=== PATIENT | male | born 1955 | race Caucasian/White ===

== ENCOUNTER 2017-05-17 10:03 | Inpatient (IN) | payer MEDICARE ==
[~2017-05-17] VITALS: Ht 177.8 cm; Wt 94.2 kg
[~2017-05-17 10:03] MED LIST: BACT800T5 PO; KEFL500C17 PO; TYLE325T5 PO; ZOLO50TA PO
[2017-05-17] MEDS ORDERED: MORPHINE 4 MG/ML 1ML SYRINGE IV ONE ×2 (10:30→11:15)
[2017-05-17] MEDS ORDERED: VITA200016 PO (11:01)
[2017-05-17] MEDS ORDERED: ATOR40TA75 PO (11:01)
[2017-05-17] MEDS ORDERED: ASPI325T24 PO (11:01)
[2017-05-17] MEDS ORDERED: fentaNYL 100 MCG/2 ML INJECTION (J3010) IV ONE ×4 (13:00→17:45)
--- NOTE | 2017-05-17 13:00 | REP ---
BILATERAL FOREARM, FOUR VIEWS: HISTORY: Fall. LEFT FOREARM: There is a comminuted intra-articular fracture of the distal radius. There is a fracture of the ulnar styloid process. There is posterior dislocation of the carpal bones with respect to the distal radius. IMPRESSION: Fracture-dislocation, as described above. ___Right FOREARM, TWO VIEWS: The patient is status post ORIF of fractures of the distal radius and ulna. Metal plates and screws are present. There is narrowing s of the radiocarpal, carpal and carpometacarpal joint spaces. There is no acute fracture or dislocation. There is narrowing of the carpal and carpometacarpal joint spaces. IMPRESSION: The patient is status post ORIF of fractures of the distal radius and ulna. Signed by Marko Lewis MD 05/17/2017 01:14 P
--- NOTE | 2017-05-17 13:04 | REP ---
UNILATERAL LEFT RIBS/PA CHEST, FIVE VIEWS: HISTORY: Fall. The patient is status post repair of fractures of the left 4th through 8th ribs. There are fractures of the left 3rd and 8th ribs. Linear density is present in the left lower lobe consistent with atelectasis or scar. The right lung is clear. The heart is normal in size. The pulmonary vasculature is normal in appearance. IMPRESSION: There are fractures of the left 3rd and 8th ribs. Signed by Marko Lewis MD 05/17/2017 01:14 P
[2017-05-17] MEDS ORDERED: VITA-121 PO (13:20)
[2017-05-17] MEDS ORDERED: REFR0.5D8 OU (13:21)
--- NOTE | 2017-05-17 13:35 | REP ---
BILATERAL WRIST, EIGHT VIEWS: LEFT WRIST: There is a comminuted intra-articular fracture of the distal radius. There is posterior dislocation of the carpal bones with respect to the distal radius. There is a fracture of the ulnar styloid process. There is narrowing of the 1st carpometacarpal joint space. IMPRESSION: Fracture dislocation as described above. RIGHT WRIST: The patient is status post ORIF of fractures of the radius and ulna. Metal plates and screws are present. There is no acute fracture or dislocation. There is an old ununited fracture of the ulnar styloid process. There is narrowing of the radiocarpal, carpal and carpometacarpal joint spaces. IMPRESSION: The patient is status post ORIF of fractures of the distal radius and ulna. Signed by Marko Lewis MD 05/17/2017 01:44 P
[2017-05-17 16:10] LABS: BASO % 0.2 % (0.0-1.0); EOS % 0.5 % (0.0-3.0); LARGE UNSTAINED CELL # 0.1 K/mm3 (0.0-0.4); LARGE UNSTAINED CELL % 0.9 % (0.0-4.0); LYMPH % 9.2 % (24.0-44.0); MEAN CORPUSCULAR HEMOGLOBIN 30.8 pg (27.0-33.0); MEAN CORPUSCULAR HGB CONC 34.2 g/dl (32.0-36.5); MEAN CORPUSCULAR VOLUME 89.9 fl (80.0-96.0); MONO # 0.5 K/mm3 (0.0-0.8); MONO % 5.3 % (0.0-5.0); NEUTROPHILS # 8.2 K/mm3 (1.8-7.7); NEUTROPHILS % 83.9 % (36.0-66.0); PLATELET COUNT, AUTOMATED 165 k/mm3 (150-450); RED CELL DISTRIBUTION WIDTH 12.7 % (11.5-14.5); WHITE BLOOD COUNT 9.7 K/mm3 (4.0-10.0)
[2017-05-17 16:15] LABS: INR 1.09
[2017-05-17 16:46] LABS: ANION GAP 9 MEQ/L (8-16); BLOOD UREA NITROGEN 11 MG/DL (7-18); CALCIUM LEVEL 8.3 MG/DL (8.8-10.2); CARBON DIOXIDE LEVEL 26 MEQ/L (21-32); CHLORIDE LEVEL 105 MEQ/L (98-107); CREATININE FOR GFR 0.64 MG/DL (0.70-1.30); GLOMERULAR FILTRATION RATE > 60.0 (>49); GLUCOSE, FASTING 97 MG/DL (80-110); POTASSIUM SERUM 3.7 MEQ/L (3.5-5.1); SODIUM LEVEL 140 MEQ/L (136-145)
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
[2017-05-17] MEDS ORDERED: ACETAMINOPHEN TAB 650MG DOSE (2X325MG) PO PRN (20:15)
[2017-05-17] MEDS ORDERED: MORPHINE 4 MG/ML 1ML SYRINGE IV PRN (20:15)
[2017-05-17] MEDS: D5W/0.45% SODIUM CHLORIDE 1,000 ML IV SCH (20:38)
[2017-05-17] MEDS: PERCOCET 5MG/325MG TAB PO PRN (20:58)
[2017-05-17 21:40] VITALS: BP 119/66
[2017-05-17 22:00] VITALS: BP 119/66
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
[2017-05-17] MEDS: MORPHINE 4 MG/ML 1ML SYRINGE IV PRN (22:44)
[2017-05-18] VITALS (15 sets, daily range): BP systolic 107–146; BP diastolic 57–82
[2017-05-18] MEDS: PERCOCET 5MG/325MG TAB PO PRN ×3 (01:05→21:43)
[2017-05-18] MEDS: D5W/0.45% SODIUM CHLORIDE 1,000 ML IV SCH ×3 (05:44→23:30)
[2017-05-18] MEDS ORDERED: ceFAZolin 1GM INJ (J0690) As Ordered ONE (07:18)
[2017-05-18] MEDS ORDERED: BUPIVACAINE/EPIN 0.25% 30 ML VIAL As Ordered ONE (07:18)
[2017-05-18] MEDS: MORPHINE 4 MG/ML 1ML SYRINGE IV PRN (07:32)
[2017-05-18] MEDS ORDERED: fentaNYL 100 MCG/2 ML INJECTION (J3010) As Ordered ONE (07:53)
[2017-05-18] MEDS ORDERED: LIDOCAINE 2% INJ 100 MG/5 ML SDV (FOR ANES.) As Ordered ONE (07:53)
[2017-05-18] MEDS ORDERED: PROPOFOL 200 MG/20 ML VIAL As Ordered ONE (07:53)
[2017-05-18] MEDS ORDERED: MIDAZOLAM INJ 2 MG/2 ML VIAL (J2250) As Ordered ONE (07:54)
[2017-05-18] MEDS ORDERED: ceFAZolin 2 GM/D5W 50 ML IV BAG (J0690) As Ordered ONE (08:19)
[2017-05-18] MEDS ORDERED: PHENYLephrine HCL 500 MCG/5 ML (100MCG/ML) SYRINGE (J2370) As Ordered ONE (08:44)
[2017-05-18] MEDS ORDERED: ONDANSETRON 4MG/2ML VIAL (J2405) As Ordered ONE (08:44)
[2017-05-18] MEDS ORDERED: ePHEDrine SULFATE 25 MG/5 ML(5MG/ML) SYRINGE As Ordered ONE (08:44)
--- NOTE | 2017-05-18 09:52 | ECGEPIP ---
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
--- NOTE | 2017-05-18 11:05 | REP ---
LEFT FOREARM: 05/18/2017. Clinical history: Comminuted distal radial fracture. Findings: The comminuted intra-articular distal radial fracture is reduced with near anatomic alignment and external fixators in the shaft of the radius and in the second metacarpal. Fluoroscopy time: 43 seconds. Signed by Gonsalo Carrasco MD 05/18/2017 07:55 P
[2017-05-18] MEDS ORDERED: ONDANSETRON 4MG/2ML VIAL (J2405) IV PRN (11:15)
[2017-05-18] MEDS ORDERED: MORPHINE 2 MG/ML 1ML SYRINGE IV PRN (11:15)
[2017-05-18] MEDS ORDERED: LR 1,000 ML IV SCH (11:15)
[2017-05-18] MEDS ORDERED: fentaNYL 100 MCG/2 ML INJECTION (J3010) IV PRN (11:15)
[2017-05-18] MEDS: ATORVASTATIN 20 MG TAB PO SCH (12:59)
[2017-05-18] MEDS: VITAMIN D 1,000 INTERNATIONAL UNITS TABLET PO SCH (12:59)
[2017-05-18] MEDS: DOCUSATE SODIUM 100 MG CAP PO SCH ×2 (12:59→20:25)
[2017-05-18] MEDS: MORPHINE 2 MG/ML 1ML SYRINGE IV PRN ×3 (13:00→20:24)
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
[2017-05-18] MEDS ORDERED: POLYVINYL ALCOHOL OPHTH SOLN 15 ML(LIQUITEARS) OU PRN (13:45)
[2017-05-18] MEDS: ONDANSETRON 4MG/2ML VIAL (J2405) IV PRN (17:17)
[2017-05-19] VITALS (12 sets, daily range): BP systolic 100–138; BP diastolic 55–78
[2017-05-19] MEDS: PERCOCET 5MG/325MG TAB PO PRN (05:34)
[2017-05-19 07:10] LABS: ANION GAP 9 MEQ/L (8-16); BLOOD UREA NITROGEN 6 MG/DL (7-18); CALCIUM LEVEL 7.5 MG/DL (8.8-10.2); CARBON DIOXIDE LEVEL 27 MEQ/L (21-32); CHLORIDE LEVEL 105 MEQ/L (98-107); CREATININE FOR GFR 0.66 MG/DL (0.70-1.30); GLOMERULAR FILTRATION RATE > 60.0 (>49); GLUCOSE, FASTING 130 MG/DL (80-110); POTASSIUM SERUM 3.9 MEQ/L (3.5-5.1); SODIUM LEVEL 141 MEQ/L (136-145)
[2017-05-19 07:49] LABS: WHITE BLOOD COUNT 7.5 K/mm3 (4.0-10.0)
[2017-05-19 07:50] LABS: BASO % 0.5 % (0.0-1.0); EOS % 2.6 % (0.0-3.0); LARGE UNSTAINED CELL % 1.3 % (0.0-4.0); LYMPH # 0.9 K/mm3 (1.5-4.5); LYMPH % 12.4 % (24.0-44.0); MEAN CORPUSCULAR HEMOGLOBIN 30.4 pg (27.0-33.0); MEAN CORPUSCULAR HGB CONC 33.7 g/dl (32.0-36.5); MEAN CORPUSCULAR VOLUME 90.4 fl (80.0-96.0); MONO # 0.5 K/mm3 (0.0-0.8); MONO % 6.6 % (0.0-5.0); NEUTROPHILS # 5.8 K/mm3 (1.8-7.7); NEUTROPHILS % 76.7 % (36.0-66.0); PLATELET COUNT, AUTOMATED 176 k/mm3 (150-450); RED CELL DISTRIBUTION WIDTH 12.6 % (11.5-14.5)
[2017-05-19 07:51] LABS: EOS # 0.2 K/mm3 (0.0-0.50); LARGE UNSTAINED CELL # 0.1 K/mm3 (0.0-0.4)
[2017-05-19] MEDS: DOCUSATE SODIUM 100 MG CAP PO SCH ×2 (08:57→21:39)
[2017-05-19] MEDS: VITAMIN D 1,000 INTERNATIONAL UNITS TABLET PO SCH (08:57)
[2017-05-19] MEDS: MOM 30ML SUSPENSION UDC PO SCH (08:57)
[2017-05-19] MEDS: ATORVASTATIN 20 MG TAB PO SCH (08:57)
[2017-05-19] MEDS: ONDANSETRON 4MG/2ML VIAL (J2405) IV PRN (08:58)
[2017-05-19] MEDS: MIRALAX *UNIT DOSE* 17GM PACKET PO SCH (08:58)
[2017-05-19] MEDS: MORPHINE 2 MG/ML 1ML SYRINGE IV PRN ×2 (08:59→11:43)
[2017-05-19] MEDS: PANTOPRAZOLE 40MG TAB (PROTONIX) PO SCH (09:00)
--- NOTE | 2017-05-19 09:00 | REP ---
LEFT LOWER EXTREMITY DOPPLER VENOUS ULTRASOUND: 05/18/2017. Clinical history: Left lower extremity swelling. Comparison: Ultrasound 12/06/2014. Findings: Standard duplex techniques were utilized throughout the left lower extremity. Deep venous system shows color flow throughout its course. Respiratory variation and augmentation at all levels. The common femoral and superficial femoral vein of the thigh both are fully compressible throughout their course. The popliteal vein is not completely compressible with a zone of nonocclusive thrombus on one wall. There is a duplication in the mid femoral vein as an anatomic variation. Impression: 1. Nonoccluding thrombus in the left popliteal vein with good color flow throughout the deep venous system and with full compressibility in the remainder of the deep venous system from just above this thrombus through the groin. Whether this represents chronic DVT or acute on chronic DVT is not certain based on these images. Correlate clinically. Signed by Gonsalo Carrasco MD 05/19/2017 05:49 P
[2017-05-19] MEDS ORDERED: LEVALBUTEROL 1.25 MG/0.5 ML CONCENTRATE NEB NEB PRN (10:30)
[2017-05-19] MEDS ORDERED: BISACODYL 10 MG SUPP PR PRN (10:30)
[2017-05-19] MEDS ORDERED: NORCO, ANEXSIA 5/325MG TABLET (HYDROcodone/ACETAMINOPHEN) PO PRN (10:30)
--- NOTE | 2017-05-19 10:56 | REP ---
AP LATERAL CHEST (SEMI-ERECT): 05/19/2017. Comparison: Chest with rib series 05/17/2017. Clinical history: Rib fractures left 3rd and 8th. Prior multiple rib fracture repair with plate and screw fixation. Findings: AP and lateral semi-erect chest shows left pleural effusion and a worsening retrocardiac atelectasis or infiltrate in the left lower lobe. Right lung base was grossly clear. Mid and upper lung zones without acute finding. Some venous hypertension without tyrone edema noted. The cardiomediastinal silhouette and airway normal. Aorta mildly tortuous. Multiple lateral and posterolateral plate and screw fixations from left 4th-8th ribs unchanged. Impression: 1. Worsening left lower lobe effusion and retrocardiac left lower lobe atelectasis or infiltrate with silhouetting of the diaphragm now present. 2. No pneumothorax. Multiple old rib fractures with plate and screw fixation of the left 4th-8th ribs. The new rib fractures on the rib series 2 days ago are not well seen on chest x-ray. 3. No cardiomegaly but some venous hypertension. No edema. Signed by Gonsalo Carrasco MD 05/19/2017 05:59 P
[2017-05-19 11:15] LABS: ABG BASE EXCESS 5.2 (-2.0-2.0); ABG HCO3 30.7 MEQ/L (22.0-26.0); ABG PARTIAL PRESSURE CO2 48.7 mmHg (35.0-45.0); ABG PARTIAL PRESSURE O2 62.9 mmHg (75.0-100.0); ABG TOTAL CO2 32.2 MEQ/L (23.0-31.0); ABG pH (ARTERIAL) 7.417 UNITS (7.350-7.450)
[2017-05-19 11:35] LABS: ALBUMIN 2.8 GM/DL (3.2-5.2); ALBUMIN/GLOBULIN RATIO 1.08 (1.00-1.93); ALKALINE PHOSPHATASE 32 U/L (45-117); ALT/SGPT 20 U/L (12-78); AST/SGOT 20 U/L (15-37); BILIRUBIN,TOTAL 0.6 MG/DL (0.2-1.0); CHOLESTEROL LEVEL 160 MG/DL (< 200); PHOSPHORUS LEVEL 2.8 MG/DL (2.5-4.9); TOTAL PROTEIN 5.4 GM/DL (6.4-8.2); TRIGLYCERIDES LEVEL 76 MG/DL (<150)
[2017-05-19] MEDS: KETOROLAC 30 MG/ML VIAL (J1885) IV SCH ×3 (11:41→22:44)
[2017-05-19] MEDS: D5W/0.45% SODIUM CHLORIDE 1,000 ML IV SCH (12:00)
[2017-05-19] MEDS ORDERED: FENTANYL 2MCG/ML BUPIVACAINE 0.0625% NACL 250ML IV BAG As Ordered ONE (12:02)
[2017-05-19] MEDS ORDERED: fentaNYL 100 MCG/2 ML INJECTION (J3010) As Ordered ONE (12:02)
[2017-05-19] MEDS ORDERED: MIDAZOLAM INJ 2 MG/2 ML VIAL (J2250) As Ordered ONE (12:02)
[2017-05-19] MEDS: MIDAZOLAM INJ 2 MG/2 ML VIAL (J2250) IV PRN ×2 (12:20→12:23)
[2017-05-19] MEDS: FENTANYL/BUPIVACAINE/NACL BAG 250 ML EPIDURAL SCH (12:59)
[2017-05-19] MEDS ORDERED: METOCLOPRAMIDE INJ 10MG/2ML VIAL (J2765) IV PRN (13:15)
[2017-05-19] MEDS ORDERED: diphenhydrAMINE INJ 50MG/ML VIAL (J1200) IV PRN (13:15)
[2017-05-19] MEDS ORDERED: NALOXONE INJ 0.4 MG/1 ML VIAL (J2310) IV PRN (13:15)
[2017-05-19] MEDS ORDERED: ONDANSETRON 4MG/2ML VIAL (J2405) IV PRN (13:15)
[2017-05-19] MEDS ORDERED: fentaNYL 100 MCG/2 ML INJECTION (J3010) IV PRN (13:15)
[2017-05-19] MEDS ORDERED: WALLBOXKEY XX PRN (13:15)
[2017-05-19] MEDS ORDERED: EPIDURAL/PCA KEYS XX PRN (13:15)
[2017-05-19] MEDS: LEVALBUTEROL 1.25 MG/0.5 ML CONCENTRATE NEB NEB SCH ×2 (14:15→20:00)
[2017-05-19] MEDS: LevoFLOXacin 750 MG TABLET PO SCH (16:00)
[2017-05-19] MEDS ORDERED: HEPARIN DRIP 25,000 UNITS in APPROPRIATE DILUENT 1 EA IV SCH (17:01)
[2017-05-19] MEDS ORDERED: HEPARIN SOD (PORCINE) 5000 UNITS/ML VIAL IV PRN (17:15)
[2017-05-19] MEDS ORDERED: HEPARIN SOD (PORCINE) 5000 UNITS/ML VIAL IV ONE (17:15)
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
[2017-05-19] MEDS: ENOXAPARIN 40 MG/0.4 ML SYRINGE (J1650) SC SCH (18:30)
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
[2017-05-20] MEDS: LEVALBUTEROL 1.25 MG/0.5 ML CONCENTRATE NEB NEB SCH ×4 (01:29→21:33)
[2017-05-20 02:00] VITALS: BP 106/51
[2017-05-20] MEDS: LevoFLOXacin 750 MG TABLET PO SCH (05:13)
[2017-05-20] MEDS: KETOROLAC 30 MG/ML VIAL (J1885) IV SCH ×4 (05:13→22:57)
[2017-05-20 06:00] VITALS: BP 112/50
[2017-05-20 06:56] LABS: BASO % 0.7 % (0.0-1.0); EOS # 0.2 K/mm3 (0.0-0.50); EOS % 3.4 % (0.0-3.0); LARGE UNSTAINED CELL # 0.1 K/mm3 (0.0-0.4); LARGE UNSTAINED CELL % 1.7 % (0.0-4.0); LYMPH % 17.3 % (24.0-44.0); MEAN CORPUSCULAR HEMOGLOBIN 29.9 pg (27.0-33.0); MEAN CORPUSCULAR HGB CONC 33.4 g/dl (32.0-36.5); MEAN CORPUSCULAR VOLUME 89.7 fl (80.0-96.0); MONO # 0.4 K/mm3 (0.0-0.8); MONO % 7.2 % (0.0-5.0); NEUTROPHILS # 3.5 K/mm3 (1.8-7.7); NEUTROPHILS % 69.7 % (36.0-66.0); PLATELET COUNT, AUTOMATED 185 k/mm3 (150-450); RED CELL DISTRIBUTION WIDTH 12.6 % (11.5-14.5)
[2017-05-20 07:07] LABS: ANION GAP 3 MEQ/L (8-16); BLOOD UREA NITROGEN 10 MG/DL (7-18); CARBON DIOXIDE LEVEL 34 MEQ/L (21-32); CHLORIDE LEVEL 103 MEQ/L (98-107); CREATININE FOR GFR 0.75 MG/DL (0.70-1.30); GLOMERULAR FILTRATION RATE > 60.0 (>49); GLUCOSE, FASTING 92 MG/DL (80-110); MAGNESIUM LEVEL 2.4 MG/DL (1.8-2.4); POTASSIUM SERUM 4.1 MEQ/L (3.5-5.1); SODIUM LEVEL 140 MEQ/L (136-145)
--- NOTE | 2017-05-20 07:10 | IPN ---
DATE: 05/19/2017 I received a call today from Dr. Turner and after reviewing his vascular ultrasound, radiology has found a thrombus in the left popliteal vein. It is uncertain that this represents a chronic or an acute deep vein thrombosis (DVT) or an acute on top of chronic DVT. Dr. Turner reviewed an ultrasound that he had 2 years ago on 12/06/2014 and there was no evidence of a deep thrombosis at that point in time. I therefore suspect that the thrombosis is more acute than chronic that he has presently. This morning, he underwent an epidural catheter placement and upon visiting the patient this evening, he has had almost complete pain control. He can take a deep breath and cough. The question now remains as to what to do with the finding of the DVT. In speaking with Dr. Ulloa, he is reluctant to have us start full anticoagulation, although if it were an emergent condition we would have to weigh the risks and benefits and start the anticoagulation, particularly if this was a full blown pulmonary embolism. We have therefore decided on the strategy of giving him lower dose Lovenox at this point in time and placing an IVC filter. We no longer have interventional radiology and it is my understanding that the vascular surgeon, Dr. Tesfaye, is able to place [place] filters and Dr. Turner is going to contact Dr. Tesfaye. If we cannot get the IVC filter placed, we are going to be forced to transfer him to another facility. Removing the epidural catheter is a very poor option as he needs for pain control to achieve lung expansion and mobilization of secretions. [facility] MEDICAL CENTERJose Alberto
--- NOTE | 2017-05-20 07:34 | RO ---
DATE OF PROCEDURE: 05/18/2017 PREOPERATIVE DIAGNOSIS: Left distal radius comminuted intra-articular fracture. POSTOPERATIVE DIAGNOSIS: Left distal radius comminuted intra-articular fracture. PROCEDURE: Closed reduction and application of external fixator with distal radius. SURGEON: Dimitry Casas MD WEATHER REPORTER: ANESTHESIA: Laryngeal mask airway (LMA) with general. COMPLICATIONS: None. ESTIMATED BLOOD LOSS: Less than 30 mL, replaced with crystalloid. COMPONENTS USED: Include the Brittni external fixator set. INDICATIONS: Fall down stairs fracture left upper extremity displaced and comminuted. Consent reviewed in detail including a tyrone discussion of procedure proposed, alternatives including doing nothing, risks including but not limited to pain, failure, infection, bleeding blood loss, need for more surgery and other issues. Of note, that the patient was consented for a volar plate and the operative intervention was changed intraoperatively due to intraoperative findings. DESCRIPTION OF PROCEDURE/OPERATIVE COURSE: Identified in the holding area, site and side verified, brought to the operating room. Once anesthesia was administered, he was positioned for exposure of the left upper extremity, sterilely prepped and draped. Tourniquet was high on the left upper extremity but not inflated. Next, a closed reduction was implemented by myself in the operating room and I directed fluoroscopy. The reduction appeared to be nearly anatomic however, upon reduction I appreciated significant comminution of the distal radius that extended longitudinally along the radial border of the distal radius, that, in my opinion, might compromise lag screws traversing the longitudinal fracture line, and therefore compromise stability of the volar plate. Because of this, the decision was made to implement an external fixator. Next, the line of the incisions were outlined with a marking pen. The proximal incision was made proximal to the longitudinal fracture at the radial diaphysis. The metacarpal incision was over the second metacarpal towards the radial side. The proximal incision made first with a 10 blade, developed down through skin and subcuticular tissues. I identified the superficial branch of the radial nerve and this was protected and it was retracted dorsally. Next, the drill guide was applied and I predrilled the fixator pin site and placed the fixator pin. A second pin was placed similarly using a drill guide, protecting the nerve and soft tissues. Next, irrigation was accomplished and attention turned to the metacarpal. An incision was made over the metacarpal in a similar fashion. Pins were drilled and placed using the soft tissue protector. Next, fluoroscopic images were obtained of pin placement in AP and lateral plane. Next, the wounds were irrigated and closed with interrupted #4-0 nylon stitch. Next, I assembled the external fixator. I placed the arm in reduction. I held the reduction while the surgical assistant tightened the bolts on the fixator. I then verified that all bolts on the fixator were secure. I obtained final fluoroscopic images, which revealed a nearly anatomic reduction of this comminuted intra-articular fracture. Next, dressings were applied. The patient was extubated and moved to the recovery room in good condition. For further details, please refer to medical record. I had a discussion with the patient's spouse postoperatively about the decision to implement the external fixator. In fact, prior to installation of the fixator we did attempt to contact the patient's spouse via cell phone; however, she was not available at that time. For further details please refer to medical record.
[2017-05-20 08:31] LABS: ABG BASE EXCESS 2.9 (-2.0-2.0); ABG HCO3 27.6 MEQ/L (22.0-26.0); ABG PARTIAL PRESSURE CO2 43.2 mmHg (35.0-45.0); ABG PARTIAL PRESSURE O2 94.6 mmHg (75.0-100.0); ABG pH (ARTERIAL) 7.424 UNITS (7.350-7.450)
[2017-05-20] MEDS: ENOXAPARIN 40 MG/0.4 ML SYRINGE (J1650) SC SCH (09:00)
[2017-05-20] MEDS: MIRALAX *UNIT DOSE* 17GM PACKET PO SCH (09:00)
[2017-05-20] MEDS: MOM 30ML SUSPENSION UDC PO SCH (09:00)
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
[2017-05-20 10:00] VITALS: BP 114/60
--- NOTE | 2017-05-20 11:01 | REP ---
Chest upright AP and lateral views: Comparisons are 03/21/2017 and 03/17/2070. There are multiple left rib stabilization plates. There is focal increased density inferiorly in the left lung and effacement of the left costophrenic angle compatible with atelectasis/effusion/combination. Left upper lobe is clear. Right lung is clear. There is an epidural catheter as an interval change. Signed by Jim Dennison MD 05/20/2017 10:53 A
[2017-05-20] MEDS: VITAMIN D 1,000 INTERNATIONAL UNITS TABLET PO SCH (11:21)
[2017-05-20] MEDS: DOCUSATE SODIUM 100 MG CAP PO SCH ×2 (11:22→20:16)
[2017-05-20] MEDS: PANTOPRAZOLE 40MG TAB (PROTONIX) PO SCH (11:22)
[2017-05-20] MEDS: ATORVASTATIN 20 MG TAB PO SCH (11:22)
[2017-05-20] MEDS: NS 1,000 ML IV SCH (11:23)
[2017-05-20 13:25] LABS: MICROSCOPIC INDICATED? MAN YES (NO)
[2017-05-20 13:26] LABS: MICROSCOPIC EXAM PERFORMED
[2017-05-20 13:27] LABS: BACTERIA, URINE LARGE AMOUNT; HYALINE CAST, URINE NONE SEEN /lpf (0-1); RBC, URINE TNTC /hpf (0-3); SQUAMOUS EPITHELIAL CELL URINE NONE SEEN /hpf (SMALL AMT)
[2017-05-20 14:00] VITALS: BP 110/53
[2017-05-20] MEDS: FENTANYL/BUPIVACAINE/NACL BAG 250 ML EPIDURAL SCH (14:18)
[2017-05-20] MEDS ORDERED: ISOVUE-300 61% 50ML VIAL (Q9967) As Ordered ONE (15:38)
[2017-05-20] MEDS ORDERED: HEPARIN 1,000 UNITS/ML 10ML VIAL (FOR RADIOLOGY& DIALYSIS ONLY) As Ordered ONE (15:38)
[2017-05-20] MEDS ORDERED: fentaNYL 100 MCG/2 ML INJECTION (J3010) As Ordered ONE (16:13)
[2017-05-20] MEDS ORDERED: MIDAZOLAM INJ 2 MG/2 ML VIAL (J2250) As Ordered ONE (16:13)
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
[2017-05-20 18:00] VITALS: BP 110/60
[2017-05-20 22:00] VITALS: BP 98/53
[2017-05-21] MEDS: NS 1,000 ML IV SCH (00:20)
[2017-05-21] MEDS: LEVALBUTEROL 1.25 MG/0.5 ML CONCENTRATE NEB NEB SCH ×4 (01:05→20:37)
[2017-05-21 02:00] VITALS: BP 107/57
[2017-05-21] MEDS: KETOROLAC 30 MG/ML VIAL (J1885) IV SCH ×4 (05:38→22:51)
[2017-05-21] MEDS: LevoFLOXacin 750 MG TABLET PO SCH (05:38)
[2017-05-21 06:00] VITALS: BP 123/58
--- NOTE | 2017-05-21 08:08 | IPN ---
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 As discussed last night, he has a popliteal deep venous thrombosis (DVT) which looks to be acute. Dr. Tesfaye has seen him and he is scheduled to undergo an IVC Sciota filter this afternoon. He is not complaining of shortness of breath and there is no cough. His vital signs show a T-max of 98.1 with a heart rate that ranges between 85 and 84 regular rate and rhythm and a respiratory rate of 16-18 without the use of accessory muscles who is 99% saturated on 2 liters nasal cannula and has blood pressures ranging between 106/51 to 112/50. His intake and output over the past 24 hours has been recorded as 2070 in and 1400 out for a positivity of 670 mL. He has taken in 1070 mL in oral intake. His weight today is 88.9 kg. Swenson catheter was placed yesterday and while it has put out 670 mL overnight, it also is quite bloody. I am hoping this represents a traumatic Swenson insertion. Yesterday I specifically addressed the non-necessity of a Swenson catheter, however, one did get placed. We are now stuck with it as he has hematuria and that will have to clear before removing Swenson catheter. On physical examination, his lungs show normal vesicular sounds. I hear no transmitted breath sounds today. Percussion note is full to the diaphragm. Cardiac exam is without murmurs, clicks, gallops or rubs. I cannot feel his PMI. S1 and S2 are normal. Abdomen is soft, nontender, bowel sounds are positive. There is no hepatomegaly. No CVA tenderness. Extremities still show a doughy right sided ankle edema. There is no pretibial edema. No calf tenderness. No differential swelling of the upper extremities. Skin is warm, dry and perfused without cyanosis or mottling including that of the nail beds and knees. Neck is supple. There is no jugular venous distention. No subcutaneous emphysema. Trachea is midline. Mouth shows his mucous membranes to be pink and moist. Lips and commissures are without lesions. No thrush. His left eye has a reactive pupil. Extraocular motion intact. Sclera anicteric. Right eye is absent. Neuro shows gross motor and gross sensation intact and gross III-XII intact. INVESTIGATIONS: His white count today is 5.0 with hemoglobin and hematocrit of 11.1 and 33.3 and a platelet count of 185. Differential shows 69% neutrophils, 17% lymphocytes, 7% monocytes. There were no immature forms. No toxic granulations. Chemistries show marginally high total CO2 of 34 with a BUN and creatinine of 10 and 0.75. Calcium is 8.0 with a magnesium of 2.4. His chest x-ray today done AP and lateral shows a haze at the bottom of the left hemithorax obscuring the costophrenic angle. That haze is also seen on the lateral film although the lateral film was taken supine. I see no infiltrates. IMPRESSION: 1. Multiple fractured ribs #3 and #8. 2. Deep venous thrombosis (DVT) right popliteal vein. 3. Bilateral fractured wrists. 4. Osteopenia. 5. Atelectasis left lower lobe. 6. Status post history of trauma with complete blindness. 7. Hypoalbuminemia, mild. 8. Hypocalcemia appropriate for his albumin. PLAN AND DISCUSSION: As noted in the introduction, he will be going down the stairs to have a Sciota filter placed after which we can take him off all anticoagulation. Once his epidural is out, we can then start Coumadin with heparin bridge. It is important that his epidural remain into reduce his pain and get him to fully expand his lungs.
[2017-05-21] MEDS: MOM 30ML SUSPENSION UDC PO SCH (09:57)
[2017-05-21] MEDS: MIRALAX *UNIT DOSE* 17GM PACKET PO SCH (09:58)
[2017-05-21] MEDS: PANTOPRAZOLE 40MG TAB (PROTONIX) PO SCH (09:58)
[2017-05-21] MEDS: ATORVASTATIN 20 MG TAB PO SCH (09:58)
[2017-05-21] MEDS: DOCUSATE SODIUM 100 MG CAP PO SCH ×2 (09:58→22:50)
[2017-05-21] MEDS: VITAMIN D 1,000 INTERNATIONAL UNITS TABLET PO SCH (09:58)
[2017-05-21 10:00] VITALS: BP 118/57
[2017-05-21] MEDS ORDERED: MAGNESIUM CITRATE 300 ML BTL PO ONE (11:00)
[2017-05-21] MEDS ORDERED: NS 1,000 ML IV SCH (11:00)
[2017-05-21 13:17] LABS: BASO % 0.5 % (0.0-1.0); EOS # 0.2 K/mm3 (0.0-0.50); LARGE UNSTAINED CELL # 0.1 K/mm3 (0.0-0.4); LARGE UNSTAINED CELL % 1.8 % (0.0-4.0); LYMPH # 1.3 K/mm3 (1.5-4.5); LYMPH % 19.1 % (24.0-44.0); MEAN CORPUSCULAR HGB CONC 34.2 g/dl (32.0-36.5); MEAN CORPUSCULAR VOLUME 90.4 fl (80.0-96.0); MONO # 0.5 K/mm3 (0.0-0.8); MONO % 8.3 % (0.0-5.0); NEUTROPHILS # 4.1 K/mm3 (1.8-7.7); NEUTROPHILS % 66.3 % (36.0-66.0); PLATELET COUNT, AUTOMATED 205 k/mm3 (150-450); RED CELL DISTRIBUTION WIDTH 12.7 % (11.5-14.5); WHITE BLOOD COUNT 6.2 K/mm3 (4.0-10.0)
[2017-05-21 14:00] VITALS: BP 137/65
[2017-05-21 14:01] LABS: ANION GAP 6 MEQ/L (8-16); BLOOD UREA NITROGEN 18 MG/DL (7-18); CALCIUM LEVEL 8.2 MG/DL (8.8-10.2); CARBON DIOXIDE LEVEL 28 MEQ/L (21-32); CHLORIDE LEVEL 107 MEQ/L (98-107); GLOMERULAR FILTRATION RATE > 60.0 (>49); GLUCOSE, FASTING 116 MG/DL (80-110); MAGNESIUM LEVEL 2.2 MG/DL (1.8-2.4); POTASSIUM SERUM 4.4 MEQ/L (3.5-5.1); SODIUM LEVEL 141 MEQ/L (136-145)
--- NOTE | 2017-05-21 15:25 | IPN ---
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 He underwent placement of IVC filter yesterday. His pain is being well controlled at the rib fracture site with the epidural. He is able to take deep breaths and he can maximize the incentive spirometer to 2500 mL. His vital signs show a maximum temperature (t-max) of 98.7 with a heart rate that ranges between 84 and 87 with a regular rate and rhythm and a respiratory rate of 18 to 19 without the use of accessory muscles who is 94 to 96% saturated on room air and whose blood pressure is ranging between 90/53 to 123/58. His intake and output over the past 24 hours has been recorded as 360 in and 1600 out for a negativity of 1240 mL. His weight today is 95.5 kg compared to 88.9 kg yesterday. I suspect that there is something spurious about the weight. PHYSICAL EXAMINATION LUNGS: His lungs show equal breath sounds on either side, anterolaterally. CARDIAC EXAM: Without murmurs, clicks, gallops or rubs. I cannot feel his point of maximum impulse (PMI). S1, S2 are normal. ABDOMEN: Soft, nontender. Bowel sounds positive. There is no hepatomegaly. No costovertebral angle tenderness. EXTREMITIES: Show no pretibial edema. No calf tenderness. No differential swelling of the upper extremities. SKIN: Warm, dry and perfused without cyanosis or mottling, including that of the nail beds and knees. NECK: Supple. There is no jugular venous distention. No subcutaneous emphysema. Trachea is midline. MOUTH: Shows his mucous membranes to be pink and moist. Lips and commissures without lesions. There is no thrush. EYES: Show his pupils to be equal and reactive. Extraocular motion intact. Sclerae anicteric. NEUROLOGIC: Shows II through XII intact with gross motor and gross sensation intact. Gait is not tested. PSYCHIATRIC: Shows him to be awake and alert, oriented times three with appropriate mood and affect and conversational. He still has very dark urine coming from the Swenson catheter, but it is certainly not as red as it was yesterday. He has put out 1600 mL in urine output. White count today is 6.2, hemoglobin and hematocrit of 11.6 and 33.8 with a platelet count of 205. Differential shows 60% neutrophils, 15% lymphocytes, 8% monocytes. There are no immature forms and no toxic granulations. His electrolytes are pending today. He continues on Toradol. There are no blood gases on him today. His chest x-ray today shows the lung fully expanded to the chest wall. The vague haze in the left lower hemithorax is improving. Lateral view done more upright shows clear costophrenic angles. I see no other infiltrates. IMPRESSION: 1. Multiple fractured ribs #3 and #8. 2. Deep venous thrombosis (DVT) right popliteal vein. 3. Bilateral fractured wrists. 4. Osteopenia. 5. Atelectasis left lower lobe, improving. 6. Status post history of trauma with complete blindness. 7. Hypoalbuminemia, mild. 8. Hypocalcemia, appropriate for his albumin. PLAN AND DISCUSSION: We will continue his epidural for the maximum of five days, at which time we will convert him to oral pain medicines. If he needs more, we can try a Duragesic patch. After his epidural is removed, he will not escape chronic anticoagulation and will need to be started on the anticoagulant of choice of the medical service.
--- NOTE | 2017-05-21 15:45 | REP ---
CHEST, TWO VIEWS: HISTORY: Rib fractures. COMPARISON: 05/20/2017. Increased density is present in the left lower lobe consistent with atelectasis or infiltrate. The right lung is clear. A small left pleural effusion is present. The heart is normal in size. The pulmonary vasculature is normal in appearance. The patient is status post repair of the left fourth through eighth ribs. Metal plates and screws are present. IMPRESSION: Left lower lobe atelectasis or infiltrate and small left pleural effusion unchanged compared to the previous study. Signed by Marko Lewis MD 05/21/2017 10:26 A
[2017-05-21] MEDS: FENTANYL/BUPIVACAINE/NACL BAG 250 ML EPIDURAL SCH (15:48)
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
[2017-05-21 22:00] VITALS: BP 110/51
[2017-05-22] MEDS: LEVALBUTEROL 1.25 MG/0.5 ML CONCENTRATE NEB NEB SCH ×4 (00:27→19:06)
[2017-05-22 02:00] VITALS: BP 123/61
[2017-05-22] MEDS: KETOROLAC 30 MG/ML VIAL (J1885) IV SCH ×4 (04:59→22:04)
[2017-05-22] MEDS: LevoFLOXacin 750 MG TABLET PO SCH (05:01)
[2017-05-22 06:00] VITALS: BP 108/69
[2017-05-22 07:17] LABS: BASO % 0.7 % (0.0-1.0); EOS # 0.3 K/mm3 (0.0-0.50); EOS % 4.9 % (0.0-3.0); LARGE UNSTAINED CELL # 0.1 K/mm3 (0.0-0.4); LARGE UNSTAINED CELL % 1.6 % (0.0-4.0); LYMPH # 1.1 K/mm3 (1.5-4.5); LYMPH % 18.2 % (24.0-44.0); MEAN CORPUSCULAR HGB CONC 34.1 g/dl (32.0-36.5); MONO # 0.4 K/mm3 (0.0-0.8); MONO % 6.6 % (0.0-5.0); NEUTROPHILS # 3.8 K/mm3 (1.8-7.7); PLATELET COUNT, AUTOMATED 199 k/mm3 (150-450); RED CELL DISTRIBUTION WIDTH 12.7 % (11.5-14.5); WHITE BLOOD COUNT 5.6 K/mm3 (4.0-10.0)
[2017-05-22 07:21] LABS: ANION GAP 8 MEQ/L (8-16); BLOOD UREA NITROGEN 18 MG/DL (7-18); CALCIUM LEVEL 7.9 MG/DL (8.8-10.2); CARBON DIOXIDE LEVEL 27 MEQ/L (21-32); CHLORIDE LEVEL 111 MEQ/L (98-107); CREATININE FOR GFR 0.66 MG/DL (0.70-1.30); GLOMERULAR FILTRATION RATE > 60.0 (>49); GLUCOSE, FASTING 107 MG/DL (80-110); MAGNESIUM LEVEL 2.5 MG/DL (1.8-2.4); POTASSIUM SERUM 4.3 MEQ/L (3.5-5.1); SODIUM LEVEL 146 MEQ/L (136-145)
[2017-05-22] MEDS: MIRALAX *UNIT DOSE* 17GM PACKET PO SCH (09:00)
[2017-05-22 10:00] VITALS: BP 129/66
[2017-05-22] MEDS: PANTOPRAZOLE 40MG TAB (PROTONIX) PO SCH (10:00)
[2017-05-22] MEDS: VITAMIN D 1,000 INTERNATIONAL UNITS TABLET PO SCH (10:00)
[2017-05-22] MEDS: DOCUSATE SODIUM 100 MG CAP PO SCH ×2 (10:00→22:03)
[2017-05-22] MEDS: ATORVASTATIN 20 MG TAB PO SCH (10:00)
[2017-05-22] MEDS: MOM 30ML SUSPENSION UDC PO SCH (10:01)
--- NOTE | 2017-05-22 10:48 | REP ---
Chest AP and lateral views, patient sitting: Comparison is 06/02/2017. Persisting increased density inferiorly in the left lung is unchanged, compatible with effusion/infiltrate/combination. The remainder of the left lung is clear and unchanged. Right lung is clear. Epidural catheter is again identified. Multiple left rib stabilization plates are again identified. Impression: No significant interval change. Signed by Jim Dennison MD 05/22/2017 10:40 A
--- NOTE | 2017-05-22 11:36 | IPN ---
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 He is pain is again being extraordinarily well controlled with the epidural. He is now being weaned down. He is sitting comfortably in a chair as I examine him. His vital signs show a maximum temperature (t-max) of 98.3 with a heart rate that ranges between 83 and 91 with a regular rate and rhythm and a respiratory rate of 18 to 12 without the use of accessory muscles, who is 97 to 96% saturated on room air and whose blood pressure is ranging between 110/51 to 137/65. His intake and output over the past 24 hours has been recorded as 840 in and 1300 out for a negativity of 460 mL. He weighs 95.5 kg today, which is unchanged from yesterday. He has taken in 840 mL of oral intake. PHYSICAL EXAMINATION LUNGS: His lungs show normal vesicular sounds on either side except in the left lower hemithorax, which showed some bronchophony and some E-to-A egophony. Percussion note is full to the diaphragm. CARDIAC EXAM: Without murmurs, clicks, gallops or rubs. I cannot feel his point of maximum impulse (PMI). S1, S2 are normal. ABDOMEN: Soft, nontender. Bowel sounds positive. There is no hepatomegaly. No costovertebral angle tenderness. EXTREMITIES: Show no pretibial edema. No calf tenderness. No differential swelling of the upper extremities. SKIN: Warm, dry and perfused without cyanosis or mottling, including that of the nail beds and knees. NECK: Supple. There is no jugular venous distention. No subcutaneous emphysema. Trachea is midline. MOUTH: Shows his mucous membranes to be pink and moist. Lips and commissures without lesions. There is no thrush. EYES: His left eye shows his pupil to be round and reactive. External ocular motions intact. NEUROLOGIC: Shows III through XII intact with gross motor and gross sensation intact. PSYCHIATRIC: Shows him to be awake and alert, oriented times three with appropriate mood and affect and conversational. His white count today is 5.6 with a hemoglobin and hematocrit of 10.9 and 32.1, unchanged from yesterday with a platelet count of 189. Differential shows 68% neutrophils, 18% lymphocytes, 6% monocytes. There are no immature forms. No toxic granulations. His electrolytes are essentially normal with a marginally high sodium of 146. BUN and creatinine are 18 and 0.66. Glucose is 107 with a calcium of 7.9 and magnesium 2.5. There are no blood gases on him today. His chest x-ray shows the lung fully expanded to the chest wall. Costophrenic angles are sharp. There is a little bit of haze and atelectasis at the left costophrenic angle, but the sulcus can be clearly seen. There are no other infiltrates on the AP sitting view. There looks to be some residual compression atelectasis in the left posterior hemithorax near the costophrenic angle on the lateral film. IMPRESSION: 1. Multiple fractured ribs #3 and #8. 2. Deep venous thrombosis (DVT) right popliteal vein. 3. Bilateral fractured wrists. 4. Osteopenia. 5. Atelectasis left lower lobe, improving. 6. Status post history of trauma with complete blindness. 7. Hypoalbuminemia, mild. 8. Hypocalcemia, appropriate for his albumin. 9. Status post [place] filter placement. PLAN AND DISCUSSION: The pain from his rib fractures is being well controlled. We will start weaning the epidural and hopefully it will be discontinued today. I see no edema of his lower extremities. As noted yesterday, after the epidural is removed, he will need to be anticoagulated.
[2017-05-22 14:00] VITALS: BP 135/62
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
--- NOTE | 2017-05-22 17:31 | REP ---
HISTORY: External fixation of a previously described fracture. Previously described distal radial and ulnar fractures are again noted. External fixation has been applied. There is a subtle lucency seen in the scaphoid, but not on all views. This is through the waist of the scaphoid. It was not definitively present on the prior exam, although the exams are technically different. Alignment of the distal radial fracture fragments has improved from the preoperative exam. IMPRESSION: 1. External fixation of previously described fractures as described above. 2. Possible nondisplaced fracture of the waist of the scaphoid. Signed by Thuan Epstein DO 05/22/2017 05:46 P
[2017-05-22 18:00] VITALS: BP 142/65
[2017-05-22 22:00] VITALS: BP 106/54
[2017-05-23] MEDS: LEVALBUTEROL 1.25 MG/0.5 ML CONCENTRATE NEB NEB SCH ×4 (01:05→19:36)
[2017-05-23 02:00] VITALS: BP 115/60
[2017-05-23] MEDS: FENTANYL/BUPIVACAINE/NACL BAG 250 ML EPIDURAL SCH (03:45)
[2017-05-23] MEDS: KETOROLAC 30 MG/ML VIAL (J1885) IV SCH ×4 (05:48→22:40)
[2017-05-23] MEDS: LevoFLOXacin 750 MG TABLET PO SCH (05:48)
[2017-05-23 06:00] VITALS: BP 126/62
[2017-05-23 08:49] LABS: BASO # 0.1 K/mm3 (0.0-0.2); EOS # 0.3 K/mm3 (0.0-0.50); EOS % 5.5 % (0.0-3.0); LARGE UNSTAINED CELL # 0.1 K/mm3 (0.0-0.4); LARGE UNSTAINED CELL % 1.5 % (0.0-4.0); LYMPH # 1.1 K/mm3 (1.5-4.5); LYMPH % 17.6 % (24.0-44.0); MEAN CORPUSCULAR HEMOGLOBIN 30.2 pg (27.0-33.0); MEAN CORPUSCULAR HGB CONC 33.1 g/dl (32.0-36.5); MEAN CORPUSCULAR VOLUME 91.3 fl (80.0-96.0); MONO # 0.4 K/mm3 (0.0-0.8); MONO % 6.1 % (0.0-5.0); NEUTROPHILS # 4.1 K/mm3 (1.8-7.7); NEUTROPHILS % 68.3 % (36.0-66.0); PLATELET COUNT, AUTOMATED 230 k/mm3 (150-450); RED CELL DISTRIBUTION WIDTH 12.7 % (11.5-14.5)
[2017-05-23 09:13] LABS: ANION GAP 8 MEQ/L (8-16); BLOOD UREA NITROGEN 16 MG/DL (7-18); CALCIUM LEVEL 8.3 MG/DL (8.8-10.2); CARBON DIOXIDE LEVEL 28 MEQ/L (21-32); CHLORIDE LEVEL 107 MEQ/L (98-107); CREATININE FOR GFR 0.64 MG/DL (0.70-1.30); GLOMERULAR FILTRATION RATE > 60.0 (>49); GLUCOSE, FASTING 94 MG/DL (80-110); MAGNESIUM LEVEL 2.2 MG/DL (1.8-2.4); POTASSIUM SERUM 4.5 MEQ/L (3.5-5.1); SODIUM LEVEL 143 MEQ/L (136-145)
[2017-05-23] MEDS: MIRALAX *UNIT DOSE* 17GM PACKET PO SCH (09:39)
[2017-05-23] MEDS: ATORVASTATIN 20 MG TAB PO SCH (09:39)
[2017-05-23] MEDS: DOCUSATE SODIUM 100 MG CAP PO SCH ×2 (09:39→22:40)
[2017-05-23] MEDS: MOM 30ML SUSPENSION UDC PO SCH (09:39)
[2017-05-23] MEDS: VITAMIN D 1,000 INTERNATIONAL UNITS TABLET PO SCH (09:39)
[2017-05-23] MEDS: PANTOPRAZOLE 40MG TAB (PROTONIX) PO SCH (09:39)
--- NOTE | 2017-05-23 11:24 | REP ---
Chest AP and lateral views: There are three views, single AP and two lateral. Comparison is 05/22/2017. The focal zone of increased density inferiorly in the left lung has slightly decreased in size. The remainder of the left lung is clear and unchanged. Right lung is clear and unchanged. Cardiac size is normal, unchanged. The epidural catheter is unchanged. The multiple rib stabilization plates are unchanged. Signed by Jim Dennison MD 05/23/2017 11:16 A
[2017-05-23 14:00] VITALS: BP 109/59
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
[2017-05-23 22:00] VITALS: BP 114/58
[2017-05-24] MEDS: LEVALBUTEROL 1.25 MG/0.5 ML CONCENTRATE NEB NEB SCH ×2 (01:31→08:15)
[2017-05-24 06:00] VITALS: BP 110/60
[2017-05-24] MEDS: LevoFLOXacin 750 MG TABLET PO SCH (06:21)
[2017-05-24] MEDS: KETOROLAC 30 MG/ML VIAL (J1885) IV SCH (06:21)
[2017-05-24 07:08] LABS: BASO # 0.1 K/mm3 (0.0-0.2); EOS # 0.3 K/mm3 (0.0-0.50); EOS % 4.8 % (0.0-3.0); LARGE UNSTAINED CELL # 0.1 K/mm3 (0.0-0.4); LYMPH # 1.1 K/mm3 (1.5-4.5); MEAN CORPUSCULAR HEMOGLOBIN 29.7 pg (27.0-33.0); MEAN CORPUSCULAR HGB CONC 32.8 g/dl (32.0-36.5); MEAN CORPUSCULAR VOLUME 90.8 fl (80.0-96.0); MONO # 0.4 K/mm3 (0.0-0.8); MONO % 5.4 % (0.0-5.0); NEUTROPHILS # 4.7 K/mm3 (1.8-7.7); NEUTROPHILS % 71.7 % (36.0-66.0); PLATELET COUNT, AUTOMATED 246 k/mm3 (150-450); RED CELL DISTRIBUTION WIDTH 12.8 % (11.5-14.5); WHITE BLOOD COUNT 6.5 K/mm3 (4.0-10.0)
[2017-05-24 07:21] LABS: ANION GAP 9 MEQ/L (8-16); BLOOD UREA NITROGEN 20 MG/DL (7-18); CALCIUM LEVEL 7.8 MG/DL (8.8-10.2); CARBON DIOXIDE LEVEL 27 MEQ/L (21-32); CHLORIDE LEVEL 108 MEQ/L (98-107); CREATININE FOR GFR 0.62 MG/DL (0.70-1.30); GLOMERULAR FILTRATION RATE > 60.0 (>49); GLUCOSE, FASTING 87 MG/DL (80-110); MAGNESIUM LEVEL 2.4 MG/DL (1.8-2.4); POTASSIUM SERUM 4.6 MEQ/L (3.5-5.1); SODIUM LEVEL 144 MEQ/L (136-145)
[2017-05-24] MEDS: ATORVASTATIN 20 MG TAB PO SCH (08:55)
[2017-05-24] MEDS: VITAMIN D 1,000 INTERNATIONAL UNITS TABLET PO SCH (08:55)
[2017-05-24] MEDS: DOCUSATE SODIUM 100 MG CAP PO SCH ×2 (08:55→20:20)
[2017-05-24] MEDS: PANTOPRAZOLE 40MG TAB (PROTONIX) PO SCH (08:55)
[2017-05-24] MEDS: MIRALAX *UNIT DOSE* 17GM PACKET PO SCH (08:55)
[2017-05-24] MEDS: MOM 30ML SUSPENSION UDC PO SCH (08:55)
[2017-05-24] MEDS: PERCOCET 5MG/325MG TAB PO PRN ×2 (08:56→20:20)
[2017-05-24 10:00] VITALS: BP 123/68
--- NOTE | 2017-05-24 10:38 | REP ---
Chest two views HISTORY: Rib fracture Comparison: 05/23/2017 Increased density is present in the left lower lobe consistent with atelectasis or infiltrate unchanged compared to the previous study. Small left pleural effusion is present. The right lung is clear.. The heart is normal in size. The pulmonary vasculature is normal in appearance. The patient is status post repair of left rib fractures. IMPRESSION: 1. Left lower lobe atelectasis or infiltrate unchanged compared to the previous study. 2. Small left pleural effusion unchanged compared to the previous study. Signed by Marko Lewis MD 05/24/2017 10:30 A
--- NOTE | 2017-05-24 11:24 | REP ---
CT of the wrist: Axial images are acquired helical scanning and a reformatted sagittal and coronal projections. Comparison is a plain film study dated 05/22/2017. The comminuted intra-articular fracture of the distal radius is maintained in satisfactory position alignment with external fixator. I do not identify a scaphoid fracture. There is a fracture of the ulnar styloid that he is also maintained in satisfactory position alignment. Signed by Jim Dennison MD 05/24/2017 11:15 A
[2017-05-24 14:00] VITALS: BP 105/61
--- NOTE | 2017-05-24 16:03 | PMRNOTEPD ---
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 Patient also with recurrence of some wrist trauma to his former radial and ulnar fractures of the right arm that are plated allow with ankle trauma. Patient today has been upgraded to weightbearing as tolerated through his right upper extremity but remains less than 5 pounds on the left upper extremity. Previously patient was not appropriate for the acute rehabilitation unit as the restrictions on his upper extremity limited the functional therapy, time and therapy and need for intensity. However patient will be having some additional therapy this weekend and I will look to see if he has the tolerance and showing gains which would suggest that ARU admission would be appropriate. KACEY MEDINA MD May 24, 2017 16:03
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
[2017-05-24 18:00] VITALS: BP 114/61
[2017-05-24] MEDS: APIXABAN 5 MG TAB (ELIQUIS) PO SCH (20:19)
[2017-05-24 22:00] VITALS: BP 111/59
--- NOTE | 2017-05-24 22:18 | IPN ---
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 His epidural is now removed and his pain is being well controlled with by mouth Percocet. His vital signs show a T-max of 98.2 with a heart rate that ranges between 90 and 87 with a regular rate and rhythm and a respiratory rate of 18 to 60 without the use of accessory muscles who is 97% saturated on room air and whose blood pressure ranges between 123/68 to 110/60. His intake and output over the past 24 hours has been recorded as 240 in and 1350 out for a negativity of 1100 mL. I suspect the intakes are not accurate. Weight is pending today. On physical examination, he has normal vesicular sounds on either side. I do not hear any more bronchophony in the left lower hemithorax. Percussion note is full to diaphragm. Cardiac exam is without murmurs, clicks, gallops or rubs. I cannot feel his point of maximal impulse (PMI). S1 and S2 are normal. Abdomen is soft and nontender. Bowel sounds are positive. There is no hepatomegaly. No costovertebral angle (CVA) tenderness. Extremities show no pretibial edema. No calf tenderness. No differential swelling of the upper extremities. Skin is warm, dry and perfused without cyanosis or mottling including that of the nail beds and the knees. Neck is supple. There is no jugular venous distention. No subcutaneous emphysema. Trachea is midline. Mouth shows his mucous membranes to be pink and moist. Lips and commissures without lesions. No thrush. Eyes show his left pupil to be reactive with extraocular muscles intact. Sclera anicteric. Neuro shows II through XII intact. Gross motor and gross sensation intact. Gait is not tested. Psychiatric shows him to be awake, alert and oriented times three with appropriate mood, affect and conversational. His white count today is 6.5 with hemoglobin and hematocrit of 10.3 and 31.4, and platelet count of 246. Differential shows 71% neutrophils, 15% lymphocytes and 5% monocytes. There are no immature forms, no toxic granulations. Electrolytes are normal with a BUN and creatinine of 20 and 0.2, a calcium of 7.8 with a magnesium of 2.4. Chest x-ray shows the lung fully expanded to the chest wall. There are no infiltrates. IMPRESSION: 1. Multiple rib fractures, numbers 3 and 8. 2. Deep venous thrombosis (DVT) right popliteal vein. 3. Bilateral fractured wrists. 4. Osteopenia. 5. Atelectasis left lower lobe, improving. 6. Status post history of trauma, with complete blindness. 7. Hypoalbuminemia. 8. Hypocalcemia. 9. Status post [place] filter placement. PLAN AND DISCUSSION: His rib fractured will heal and we should essentially just get him pain control as needed. He will now need to be fully anticoagulated even with the Ingris filter in. I will leave that to the medical service.
[2017-05-25] MEDS: PERCOCET 5MG/325MG TAB PO PRN ×4 (01:34→20:48)
[2017-05-25 02:00] VITALS: BP 118/60
[2017-05-25] MEDS: LevoFLOXacin 750 MG TABLET PO SCH (05:36)
[2017-05-25 06:00] VITALS: BP 124/70
[2017-05-25 06:35] LABS: BASO # 0.1 K/mm3 (0.0-0.2); EOS # 0.3 K/mm3 (0.0-0.50); EOS % 4.4 % (0.0-3.0); LARGE UNSTAINED CELL # 0.1 K/mm3 (0.0-0.4); LARGE UNSTAINED CELL % 1.9 % (0.0-4.0); LYMPH # 1.3 K/mm3 (1.5-4.5); LYMPH % 19.2 % (24.0-44.0); MEAN CORPUSCULAR HEMOGLOBIN 29.8 pg (27.0-33.0); MEAN CORPUSCULAR HGB CONC 32.9 g/dl (32.0-36.5); MEAN CORPUSCULAR VOLUME 90.6 fl (80.0-96.0); MONO # 0.4 K/mm3 (0.0-0.8); MONO % 5.7 % (0.0-5.0); NEUTROPHILS # 4.2 K/mm3 (1.8-7.7); NEUTROPHILS % 67.8 % (36.0-66.0); PLATELET COUNT, AUTOMATED 273 k/mm3 (150-450); RED CELL DISTRIBUTION WIDTH 12.9 % (11.5-14.5); WHITE BLOOD COUNT 6.2 K/mm3 (4.0-10.0)
[2017-05-25 07:01] LABS: ANION GAP 5 MEQ/L (8-16); BLOOD UREA NITROGEN 15 MG/DL (7-18); CALCIUM LEVEL 8.5 MG/DL (8.8-10.2); CARBON DIOXIDE LEVEL 30 MEQ/L (21-32); CHLORIDE LEVEL 106 MEQ/L (98-107); CREATININE FOR GFR 0.63 MG/DL (0.70-1.30); GLOMERULAR FILTRATION RATE > 60.0 (>49); GLUCOSE, FASTING 87 MG/DL (80-110); MAGNESIUM LEVEL 2.3 MG/DL (1.8-2.4); POTASSIUM SERUM 4.2 MEQ/L (3.5-5.1); SODIUM LEVEL 141 MEQ/L (136-145)
[2017-05-25 09:00] VITALS: BP 125/59
--- NOTE | 2017-05-25 09:36 | IPNPDOC ---
Date Seen The patient was seen on 05/25/17. Progress Note SUBJECTIVE: Patient is a 61 y/o male s/p L wrist spanning external fixation for a comminuted distal radius fracture. Patient also with a minimally displaced R distal radius fracture around previous hardware. Complains of numbness over left thumb but otherwise pain is well controlled. OBJECTIVE PHYSICAL EXAMINATION: VITAL SIGNS: Please see below. GENERAL: well nourished male, NAD CARDIOVASCULAR: 2+ radial pulse, BCR all digits BUE. RESPIRATORY: non labored breathing. EXTREMITIES: focused exam of the left wrist demonstrates wrist spanning ex-fix in place, c/d/i. pin sites are clean with no drainage. no surrounding erythema, induration/ able to actively flex/extend all digits L hand. paresthesias over L dorsum of thumb otherwise intact LABORATORY DATA: Please see below. IMAGING: CT of left wrist redemonstrates a comminuted distal radius fracture in acceptable alignment s/p external fixation ASSESSMENT: This is a 61 y/o male POD5 s/p L distal radius ex-fix, doing well PLAN: 1. NWB LUE 2. Daily pin site dressing changes, may shower and wash pin sites with soap and water 3. Recommend platform walker for ambulation 4. Sutures will require removal in 10-14 days from surgery. Can be done by nursing if remains inpatient 5. Orthopedics will follow peripherally while in house, call with questions VS, I&O, 24H, Fishbone Vital Signs/I&O Vital Signs Date Time Temp Pulse Resp B/P (MAP) Pulse Ox O2 Delivery O2 Flow Rate FiO2 05/25/17 09:09 16 05/25/17 09:00 98.1 85 125/59 (81) 98 Room Air 05/20/17 14:00 2.0 05/19/17 14:20 96 I&O- Last 24 Hours up to 6 AM 05/25/17 06:00 Intake Total 920 ml Output Total 1750 ml Balance -830 ml Laboratory Data 24H LABS Laboratory Tests 2 05/25/17 06:14: White Blood Count 6.2, Red Blood Count 3.54L, Hemoglobin 10.6L, Hematocrit 32.1L , Mean Corpuscular Volume 90.6, Mean Corpuscular Hemoglobin 29.8, Mean Corpuscular Hemoglobin Concent 32.9, Red Cell Distribution Width 12.9, Platelet Count 273, Neutrophils (%) (Auto) 67.8H, Lymphocytes (%) (Auto) 19.2L, Monocytes (%) (Auto) 5.7H, Eosinophils (%) (Auto) 4.4H, Basophils (%) (Auto) 1.0 , Neutrophils # (Auto) 4.2, Lymphocytes # (Auto) 1.3L, Monocytes # (Auto) 0.4, Eosinophils # (Auto) 0.3, Basophils # (Auto) 0.1, Large Unclassified Cells % 1.9 , Large Unclassified Cells # 0.1, Anion Gap 5L, Glomerular Filtration Rate > 60.0, Blood Urea Nitrogen 15, Creatinine 0.63L, Sodium Level 141, Potassium Level 4.2, Chloride Level 106, Carbon Dioxide Level 30, Calcium Level 8.5L, Magnesium Level 2.3 CBC/BMP Laboratory Tests 05/25/17 06:14 Red Blood Count 3.54 L, Mean Corpuscular Volume 90.6, Mean Corpuscular Hemoglobin 29.8, Mean Corpuscular Hemoglobin Concent 32.9, Red Cell Distribution Width 12.9, Neutrophils (%) (Auto) 67.8 H, Lymphocytes (%) (Auto) 19.2 L, Monocytes (%) (Auto) 5.7 H, Eosinophils (%) (Auto) 4.4 H, Basophils (%) (Auto) 1.0, Neutrophils # (Auto) 4.2, Lymphocytes # (Auto) 1.3 L, Monocytes # ( Auto) 0.4, Eosinophils # (Auto) 0.3, Basophils # (Auto) 0.1, Calcium Level 8.5 L Microbiology Microbiology 05/19/17 Blood Culture - Final, Complete NO GROWTH AFTER 5 DAYS 05/19/17 Blood Culture - Final, Complete NO GROWTH AFTER 5 DAYS 05/19/17 Urine Culture - Final, Complete MILVIA GTZ MD May 25, 2017 09:30
[2017-05-25 10:15] VITALS: BP 125/59
[2017-05-25] MEDS: VITAMIN D 1,000 INTERNATIONAL UNITS TABLET PO SCH (10:17)
[2017-05-25] MEDS: APIXABAN 5 MG TAB (ELIQUIS) PO SCH ×2 (10:17→20:47)
[2017-05-25] MEDS: MOM 30ML SUSPENSION UDC PO SCH (10:18)
[2017-05-25] MEDS: DOCUSATE SODIUM 100 MG CAP PO SCH ×2 (10:18→20:47)
[2017-05-25] MEDS: MIRALAX *UNIT DOSE* 17GM PACKET PO SCH (10:18)
[2017-05-25] MEDS: PANTOPRAZOLE 40MG TAB (PROTONIX) PO SCH (10:18)
[2017-05-25] MEDS: ATORVASTATIN 20 MG TAB PO SCH (10:18)
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
[2017-05-25 14:11] VITALS: BP 116/68
[2017-05-25 22:00] VITALS: BP 117/55
[2017-05-26 02:00] VITALS: BP 122/66
[2017-05-26] MEDS: PERCOCET 5MG/325MG TAB PO PRN ×3 (03:16→20:32)
[2017-05-26 06:00] VITALS: BP 122/70
[2017-05-26 08:35] LABS: MEAN CORPUSCULAR HEMOGLOBIN 30.3 pg (27.0-33.0); MEAN CORPUSCULAR HGB CONC 33.8 g/dl (32.0-36.5); MEAN CORPUSCULAR VOLUME 89.8 fl (80.0-96.0); RED CELL DISTRIBUTION WIDTH 12.5 % (11.5-14.5); WHITE BLOOD COUNT 5.6 K/mm3 (4.0-10.0)
[2017-05-26 08:57] LABS: ANION GAP 7 MEQ/L (8-16); BLOOD UREA NITROGEN 14 MG/DL (7-18); CALCIUM LEVEL 8.6 MG/DL (8.8-10.2); CARBON DIOXIDE LEVEL 28 MEQ/L (21-32); CHLORIDE LEVEL 106 MEQ/L (98-107); CREATININE FOR GFR 0.64 MG/DL (0.70-1.30); GLOMERULAR FILTRATION RATE > 60.0 (>49); GLUCOSE, FASTING 92 MG/DL (80-110); POTASSIUM SERUM 4.5 MEQ/L (3.5-5.1); SODIUM LEVEL 141 MEQ/L (136-145)
[2017-05-26 10:00] VITALS: BP 116/70
[2017-05-26] MEDS: VITAMIN D 1,000 INTERNATIONAL UNITS TABLET PO SCH (10:17)
[2017-05-26] MEDS: APIXABAN 5 MG TAB (ELIQUIS) PO SCH ×2 (10:18→20:32)
[2017-05-26] MEDS: DOCUSATE SODIUM 100 MG CAP PO SCH ×2 (10:18→20:33)
[2017-05-26] MEDS: ATORVASTATIN 20 MG TAB PO SCH (10:18)
[2017-05-26] MEDS: PANTOPRAZOLE 40MG TAB (PROTONIX) PO SCH (10:19)
[2017-05-26] MEDS: MOM 30ML SUSPENSION UDC PO SCH (10:20)
[2017-05-26] MEDS: MIRALAX *UNIT DOSE* 17GM PACKET PO SCH (10:20)
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
[2017-05-26 14:00] VITALS: BP 109/67
[2017-05-26 22:00] VITALS: BP 114/59
[2017-05-27] MEDS: PERCOCET 5MG/325MG TAB PO PRN (05:52)
[2017-05-27 06:00] VITALS: BP 117/62
[2017-05-27] MEDS: MOM 30ML SUSPENSION UDC PO SCH (09:00)
[2017-05-27] MEDS: ATORVASTATIN 20 MG TAB PO SCH (09:00)
[2017-05-27] MEDS: VITAMIN D 1,000 INTERNATIONAL UNITS TABLET PO SCH (09:00)
[2017-05-27] MEDS: PANTOPRAZOLE 40MG TAB (PROTONIX) PO SCH (09:00)
[2017-05-27] MEDS: APIXABAN 5 MG TAB (ELIQUIS) PO SCH ×2 (09:00→20:50)
[2017-05-27] MEDS: MIRALAX *UNIT DOSE* 17GM PACKET PO SCH (09:00)
[2017-05-27] MEDS: DOCUSATE SODIUM 100 MG CAP PO SCH ×2 (09:00→20:50)
--- NOTE | 2017-05-27 12:41 | PMRNOTEPD ---
PMR Note Patient reassessed. Since upgrading his right upper extremity to weight-bear as tolerated he has made great gains with regards to general mobility, such is now walking greater than thousand feet. He has also gotten to contact-guard and supervision level in most bed mobility and transfers. He has also greatly increased the number of activities he can work on in occupational therapy. Patient has multiple goals to learn how to perform one-handed ADLs. However, I am unable to offer an ARU bed, as the patient principally knee-chest occupational therapy at this time. I do feel he would have fit from residential facility rehabilitation focused on occupational therapy and becoming modified independent in ADLs using his right upper extremity. KACEY MEDINA MD May 27, 2017 12:41
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
[2017-05-27 14:00] VITALS: BP 109/63
[2017-05-27 22:00] VITALS: BP 111/64
[2017-05-28 06:00] VITALS: BP 116/58
[2017-05-28] MEDS: PERCOCET 5MG/325MG TAB PO PRN (06:47)
[2017-05-28] MEDS: VITAMIN D 1,000 INTERNATIONAL UNITS TABLET PO SCH (09:31)
[2017-05-28] MEDS: PANTOPRAZOLE 40MG TAB (PROTONIX) PO SCH (09:32)
[2017-05-28] MEDS: ATORVASTATIN 20 MG TAB PO SCH (09:32)
[2017-05-28] MEDS: APIXABAN 5 MG TAB (ELIQUIS) PO SCH ×2 (09:32→22:24)
[2017-05-28] MEDS: SENOKOT S TAB PO SCH ×2 (09:32→22:24)
[2017-05-28 14:00] VITALS: BP 143/65
[2017-05-28 22:00] VITALS: BP 108/57
[2017-05-29 06:00] VITALS: BP 114/65
[2017-05-29 07:04] LABS: MEAN CORPUSCULAR HEMOGLOBIN 30.1 pg (27.0-33.0); MEAN CORPUSCULAR HGB CONC 33.8 g/dl (32.0-36.5); MEAN CORPUSCULAR VOLUME 89.1 fl (80.0-96.0); RED CELL DISTRIBUTION WIDTH 12.6 % (11.5-14.5); WHITE BLOOD COUNT 6.9 K/mm3 (4.0-10.0)
[2017-05-29 07:16] LABS: ANION GAP 8 MEQ/L (8-16); BLOOD UREA NITROGEN 16 MG/DL (7-18); CALCIUM LEVEL 8.3 MG/DL (8.8-10.2); CARBON DIOXIDE LEVEL 28 MEQ/L (21-32); CHLORIDE LEVEL 105 MEQ/L (98-107); GLOMERULAR FILTRATION RATE > 60.0 (>49); GLUCOSE, FASTING 95 MG/DL (80-110); MAGNESIUM LEVEL 2.3 MG/DL (1.8-2.4); POTASSIUM SERUM 4.4 MEQ/L (3.5-5.1); SODIUM LEVEL 141 MEQ/L (136-145)
[2017-05-29] MEDS: PERCOCET 5MG/325MG TAB PO PRN ×2 (10:12→19:53)
[2017-05-29] MEDS: VITAMIN D 1,000 INTERNATIONAL UNITS TABLET PO SCH (10:12)
[2017-05-29] MEDS: SENOKOT S TAB PO SCH ×2 (10:13→19:52)
[2017-05-29] MEDS: PANTOPRAZOLE 40MG TAB (PROTONIX) PO SCH (10:13)
[2017-05-29] MEDS: ATORVASTATIN 20 MG TAB PO SCH (10:13)
[2017-05-29] MEDS: APIXABAN 5 MG TAB (ELIQUIS) PO SCH ×2 (10:13→19:52)
[2017-05-29] MEDS ORDERED: ELIQ5TAB PO ×2 (13:29→13:31)
[2017-05-29] MEDS ORDERED: PANT40TA2 PO (13:29)
[2017-05-29] MEDS ORDERED: SENN1TAB2 PO (13:29)
[2017-05-29] MEDS ORDERED: PERCOCET PO (13:29)
[2017-05-29 22:00] VITALS: BP 120/59
[2017-05-30] MEDS: PERCOCET 5MG/325MG TAB PO PRN ×2 (01:07→10:16)
[2017-05-30 06:00] VITALS: BP 107/60
[2017-05-30] MEDS: PANTOPRAZOLE 40MG TAB (PROTONIX) PO SCH (10:15)
[2017-05-30] MEDS: APIXABAN 5 MG TAB (ELIQUIS) PO SCH (10:15)
[2017-05-30] MEDS: ATORVASTATIN 20 MG TAB PO SCH (10:15)
[2017-05-30] MEDS: SENOKOT S TAB PO SCH (10:16)
[2017-05-30] MEDS: VITAMIN D 1,000 INTERNATIONAL UNITS TABLET PO SCH (10:16)
[2017-05-31] MEDS ORDERED: APIXABAN 5 MG TAB (ELIQUIS) PO SCH (21:00)
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
--- NOTE | 2017-06-18 08:57 | RO ---
DATE OF PROCEDURE: 05/20/2017 PREOPERATIVE DIAGNOSIS: Left popliteal vein deep venous thrombosis. POSTOPERATIVE DIAGNOSIS: Left popliteal vein deep venous thrombosis. PROCEDURE: Ultrasound and fluoroscopic guided right internal jugular vein cannulation with selective inferior vena cava catheter placement and inferior vena cava filter placement with a select filter. SURGEON: Dr. Raúl Tesfaye TELEVISION INSTALLER HELPER: Mechelle Morales and Joelle Mai, RT ANESTHESIA: Local with 10 mL of 2% lidocaine. FLUOROSCOPY TIME: 0.4 minutes. CONTRAST: 5 mL. COMPLICATIONS: None. DRAINS: None. SPECIMENS: None. IMPLANTS: Select retrievable inferior vena cava filter placement. INDICATION: Patient is a 61-year-old male with left popliteal vein deep venous thrombosis (DVT) and inability to undergo anticoagulation due to recent fall and traumatic injuries. Patient will undergo placement of a retrievable inferior vena filter with subsequent removal once he is able to under anticoagulation. Risks, benefits and alternative treatment options were discussed with the patient. Benefits included but were not limited to prevention of pulmonary embolus. Alternative treatment options included but were not limited to no intervention. Risks included but were not limited to infection, bleeding, renal failure requiring hemodialysis, possible need for open surgical intervention, inferior vena cava (IVC) filter migration, IVC thrombosis, possible need for open surgical removal of the inferior vena cava filter, cerebrovascular accident, myocardial infarction, pulmonary embolus, DVT, loss of limb, loss of life, and poor outcome. Patient understands, accepts these risks and consents to proceed. DESCRIPTION OF PROCEDURE: Patient was taken to the angiography suite, placed supine on angiography room table and then prepped and draped in a standard surgical fashion. A time-out was completed by myself and all the members within the room confirming the correct procedure, patient and laterality. The right internal jugular vein was then evaluated with an ultrasound. Noted to be easily compressible, free of thrombus and widely patent. Ultrasound was then used to guide cannulation of the right internal jugular vein with a micropuncture needle after anesthetizing the overlying skin with 2% lidocaine. The ultrasound was used to guide concurrent placement of the micropuncture needle within the right internal jugular vein with direct visualization of the entry of the needle into the vein. A hard copy image was preserved. The micropuncture wire was then advanced through the micropuncture needle, which was upsized to a micropuncture sheath. An Amplex wire was advanced through the micropuncture sheath, which was then upsized to the 10-Korean sheath, which was placed selectively in the inferior vena cava. The inferior vena cavogram was performed demonstrating a location of the renal vein, after which the select filter was placed below the level of the renal veins using fluoroscopic guidance. The sheath was removed and manual compression applied at the puncture site. Final fluoroscopic image showed no pneumohemothorax with good positioning of the inferior vena cava filter. All instruments, sponge and needle counts were correct at the end of the case. There were no complications. Dr. Tesfaye was present for and directed the entire case. Patient was transferred to the holding area and subsequently to the floor in stable condition. RADIOLOGIC SUPERVISION INTERPRETATION: The ultrasound was used to evaluate the right internal jugular vein, which was widely patent, easily compressed, free thrombus. The ultrasound was then used to guide cannulation with concurrent visualization of the needle entering into the right internal jugular vein, after which a catheter was placed in the inferior vena cava and an inferior vena cavogram was performed showing the level of the renal veins. The filter was placed below the level of the renal vein using fluoroscopic guidance. Final fluoroscopic image showed no pneumohemothorax and the filter to be in good position and good alignment.
== END 2017-05-30 10:53 | DRG 510 ==
LOC: EDBD 10:03 → M ED 10:03 → M ED INP 17:10 → M MSPAV 21:40 → M MS5PR 05-18 13:55
PROVIDERS: ADMIT Orthopaedic Surgery; ATTEND Hospitalist
PROC: 0PSJXZZ Reposition Left Radius, External Approach (ICD-10-PCS; 2017-05-18)
PROC: 0PHJ05Z Insertion of External Fixation Device into Left Radius, Open Approach (ICD-10-PCS; principal; 2017-05-18 08:00)
PROC: 03H Upper Arteries, Insertion (ICD-10-PCS; 2017-05-20)
DX: S52.592A Other fractures of lower end of left radius, initial encounter for closed fracture (principal); J18.9 Pneumonia, unspecified organism; I82.432 Acute embolism and thrombosis of left popliteal vein; S22.41XA Multiple fractures of ribs, right side, initial encounter for closed fracture; J98.11 Atelectasis; E78.5 Hyperlipidemia, unspecified; R31.9 Hematuria, unspecified; H54.8 Legal blindness, as defined in USA; W10.9XXA Fall (on) (from) unspecified stairs and steps, initial encounter; Y92.009 Unspecified place in unspecified non-institutional (private) residence as the place of occurrence of the external cause; Z87.891 Personal history of nicotine dependence; Z79.899 Other long term (current) drug therapy; E83.51 Hypocalcemia; D64.9 Anemia, unspecified; E88.09 Other disorders of plasma-protein metabolism, not elsewhere classified

== ENCOUNTER → 2017-05-31 | Outpatient (REF) ==
[~2017-05-31] MED LIST changes: +ASPI325T24 PO; +ATOR40TA75 PO; +ELIQ5TAB PO; +PANT40TA2 PO; +PERCOCET PO; +REFR0.5D8 OU; +SENN1TAB2 PO; +VITA-121 PO; +VITA200016 PO
[2017-05-31 07:11] LABS: MEAN CORPUSCULAR HGB CONC 33.7 g/dl (32.0-36.5); MEAN CORPUSCULAR VOLUME 89.2 fl (80.0-96.0)
[2017-05-31 07:31] LABS: ANION GAP 7 MEQ/L (8-16); BLOOD UREA NITROGEN 16 MG/DL (7-18); CALCIUM LEVEL 8.4 MG/DL (8.8-10.2); CARBON DIOXIDE LEVEL 29 MEQ/L (21-32); CHLORIDE LEVEL 108 MEQ/L (98-107); CREATININE FOR GFR 0.68 MG/DL (0.70-1.30); GLOMERULAR FILTRATION RATE > 60.0 (>49); GLUCOSE, FASTING 87 MG/DL (80-110); POTASSIUM SERUM 4.3 MEQ/L (3.5-5.1); SODIUM LEVEL 144 MEQ/L (136-145)
== END ==
LOC: SKLAB2 10:38
PROVIDERS: ATTEND Internal Medicine
DX: Z00.00 Encounter for general adult medical examination without abnormal findings (principal)

== ENCOUNTER → 2017-08-02 | Outpatient (CLI) | payer MEDICARE ==
--- NOTE | 2017-08-02 08:59 | REP ---
LEFT LOWER EXTREMITY DUPLEX DOPPLER VENOUS ULTRASOUND: Real-time compression and duplex Doppler interrogation of the left lower extremity deep vein system is performed and compared to prior study of 05/18/2017. Left common femoral and superficial femoral veins are fully compressible with transducer pressure and demonstrate normal spontaneous and phasic flow without evidence of deep venous thrombosis. There is again small partially occlusive chronic thrombus in the left popliteal vein. This appears essentially unchanged compared to the prior study. Signed by Jim Ortiz MD 08/05/2017 09:44 A
== END ==
LOC: M RAD 07:22
PROVIDERS: ATTEND Nurse Practitioner Adult Health
DX: I82.419 Acute embolism and thrombosis of unspecified femoral vein (principal)

== ENCOUNTER → 2017-09-02 | Outpatient (CLI) | payer MEDICARE ==
--- NOTE | 2017-09-02 10:43 | REP ---
LEFT LOWER EXTREMITY DUPLEX DOPPLER VENOUS ULTRASOUND: Real-time compression and duplex Doppler interrogation of the left lower extremity deep venous system is performed and compared to a prior study of 08/02/2017. Once again, the left common femoral and superficial femoral veins are fully compressible with transducer pressure and demonstrate normal spontaneous and phasic flow without evidence of deep venous thrombosis. There is no change in the small amount of partially occlusive thrombus in the left popliteal vein. IMPRESSION: Stable exam. Signed by Jim Ortiz MD 09/02/2017 11:00 A
== END ==
LOC: M RAD 09:17
PROVIDERS: ATTEND Nurse Practitioner Adult Health
DX: I82.402 Acute embolism and thrombosis of unspecified deep veins of left lower extremity (principal)

== ENCOUNTER → 2017-12-16 | Outpatient (CLI) | payer MEDICARE ==
[2017-12-16 11:40] LABS: BASO # 0.1 10^3/uL (0.0-0.2); EOS # 0.1 10^3/uL (0.0-0.50); HEMATOCRIT 42.8 % (42.0-52.0); HEMOGLOBIN 13.9 g/dl (14.0-18.0); IMMATURE GRANULOCYTE % 0.2 % (0-3.0); LYMPH # 1.5 10^3/uL (1.5-4.5); LYMPH % 29.9 % (24.0-44.0); MEAN CORPUSCULAR HEMOGLOBIN 29.4 pg (27.0-33.0); MEAN CORPUSCULAR HGB CONC 32.5 g/dl (32.0-36.5); MEAN CORPUSCULAR VOLUME 90.5 fl (80.0-96.0); MONO # 0.5 10^3/uL (0.0-0.8); MONO % 10.4 % (0.0-5.0); NEUTROPHILS # 2.8 10^3/uL (1.8-7.7); NEUTROPHILS % 56.5 % (36.0-66.0); PLATELET COUNT, AUTOMATED 225 10^3/uL (150-450); RED BLOOD COUNT 4.73 10^6/uL (4.30-6.10); RED CELL DISTRIBUTION WIDTH 12.8 % (11.5-14.5)
[2017-12-16 12:10] LABS: ANION GAP 5 MEQ/L (8-16); BLOOD UREA NITROGEN 16 MG/DL (7-18); CALCIUM LEVEL 9.1 MG/DL (8.8-10.2); CARBON DIOXIDE LEVEL 31 MEQ/L (21-32); CHLORIDE LEVEL 108 MEQ/L (98-107); CREATININE FOR GFR 0.87 MG/DL (0.70-1.30); GLOMERULAR FILTRATION RATE > 60.0 (>49); GLUCOSE, FASTING 87 MG/DL (70-100); POTASSIUM SERUM 4.1 MEQ/L (3.5-5.1); SODIUM LEVEL 144 MEQ/L (136-145)
== END ==
LOC: M LAB 10:53
DX: I82.432 Acute embolism and thrombosis of left popliteal vein (principal)
CPT/HCPCS: 80048